=== PATIENT | female | born 1965 | race American Indian/Alaskan Native ===

== ENCOUNTER 2018-10-06 13:09 | Outpatient (CLI) | payer OTHER | END 2018-10-06 13:10 | disposition home or self-care (01) | LOC: C.LAB 13:09 | DX: D64.9 Anemia, unspecified (principal) ==

== ENCOUNTER 2018-11-18 11:29 | Outpatient (CLI) | payer OTHER | END 2018-11-18 11:30 | disposition home or self-care (01) | LOC: C.LAB 11:29 | DX: E11.65 Type 2 diabetes mellitus with hyperglycemia (principal); D64.9 Anemia, unspecified; E78.5 Hyperlipidemia, unspecified ==